=== PATIENT | male | born 1965 | race Caucasian/White ===

== ENCOUNTER 2025-01-25 10:05 | Emergency (ER) | payer OTHER, SELFPAY ==
[2025-01-25 10:08] VITALS: BP 131/94
--- NOTE | 2025-01-25 11:30 | ED.GENMED ---
History of Present Illness
General
Chief Complaint: Chest Problem
Source: patient
Time Seen by Provider: 01/25/25 10:59
History of Present Illness
History of Present Illness:
59-year-old male presents to the emergency room complaining of pain in his left lower abdomen. Pains been present for a day or so. No fever. Patient also complaining of a cough productive of yellow sputum. The patient has been experiencing a
cough chronically for the past couple years that is typically productive of clear sputum. He was concerned that the sputum color had changed. He actually took 500 mg of Zithromax which she had at home yesterday. The sputum color did not improve.
He feels mildly short of breath. He uses inhalers at home. Patient also has a history of diverticulitis diagnosed by CAT scan. He has had 1 hospitalization for this. He denies any nausea vomiting diarrhea or constipation.
Past History
Past History
ED Past Medical History: HTN, Psychiatric and Other
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
Social History
Tobacco: Former smoker
Alcohol: Occasional
Drug: None
Personal:
Living: with family
Employment: Employed
Family History
Family History: Other (non contributory)
Phy Exam
Physical Exam
Physical Exam:
General: Awake, Alert, Oriented X3. No acute distress.
Vitals: unremarkable
Head: Atraumatic
Eyes: Pupils equal, EOMI
Throat: Airway intact, no exudates
Neck: Trachea midline
Lungs: Coarse breath sounds throughout
Heart: Regular rate, no murmurs
Abd: Soft, left lower quadrant tenderness to palpation, no rebound, No pulsatile mass
Neuro: Nonfocal
Skin: Warm, dry, no rash
Extremities: pulses equal b/l, left BKA
Course
Orders/Labs/Results
Orders:
Orders
01/25/25 10:13
ECG [Electrocardiogram (*1)] Urgent
Reason for Study: Abdominal Pain
EKG- Treatment ONCE
01/25/25 11:30
Amoxicillin 875 mg/Clav 125 mg [Augmentin 875 mg/125 mg] 1 tablet PO NOW STA
Vital Signs
Initial and Last Documented VS:
Initial Vital Signs
Temp Pulse Resp BP Pulse Ox
97.9 F 78 20 131/94 95
01/25/25 10:08 01/25/25 10:08 01/25/25 10:08 01/25/25 10:08 01/25/25 10:08
Last Documented Vital Signs
Temp Pulse Resp BP Pulse Ox
97.9 F 73 18 123/83 100
01/25/25 10:08 01/25/25 12:15 01/25/25 12:15 01/25/25 12:15 01/25/25 12:15
MDM/Problems Addressed
Differential Diagnosis Includes:
Diverticulitis, bronchitis, pneumonia
MDM/Problems Addressed:
Patient presents with left lower quadrant abdominal pain with changes of sputum. Patient states the pain today is just like his diverticulitis pain. Because his exam is otherwise benign I feel comfortable clinically diagnosing him with
diverticulitis and starting antibiotics. Augmentin will cover any potential lung pathology that we likely has a change in sputum environmental exposures or viral illness. Patient stable for discharge home.
*Pulse Oximetry
Patient hypoxic: no
*EKG
Interpreted by ED Provider?: Yes
Heart Rate: 73
Rate: normal
Rhythm: sinus
[place]: normal axis
Interval: normal interval
QRS Pattern: normal QRS
Ischemia: no ischemia
*Field Support Rep Interpretation
Rate: normal
Interpretation: normal
Rhythm: sinus
*Critical Care Note
Total Time (30-74mins, 75-104mins- exclusive of procedures): Not Applicable
ED Attending Note
-
Portions of this chart may have been created with voice recognition software.� Occasional wrong word or��sound alike� substitutions may have occurred due to the inherent limitations of voice recognition software.
Discharge Plan
Departure
Patient Disposition: Home (Routine Discharge)
Date of Disposition: 01/25/25
Time of Disposition: 11:30
Patient with high blood pressure during this ER visit?: No
Condition: Good
Discharge Problem:
Diverticulitis, Abdominal pain
Instructions: Diverticulitis - Discharge instructions
Prescriptions:
New
amoxicillin-pot clavulanate 875-125 mg tablet
1 tab PO BID Qty: 14 0RF
No Action
metoprolol succinate 50 MG tablet extended release 24 hr
50 mg PO BID
lisinopril 20 MG tablet
20 mg PO BID
lorazepam 0.5 MG tablet
0.5 mg PO PRN PRN (Reason: anxiety)
multivitamin with folic acid [Tab-A-Gissel] 1 TABLET tablet
1 tab PO DAILY
lisinopril-hydrochlorothiazide 20-25 mg Tablet
1 tab PO DAILY
Probiotic 1 CAPSULE capsule
1 cap PO DAILY
ciprofloxacin HCl [Cipro] 500 mg tablet
500 mg PO BID Qty: 20 0RF
metronidazole 500 mg tablet
500 mg PO TID Qty: 30 0RF
Referrals:
Mac Ward MD [Family Provider, Internal Medicine]
Interventions
Interventions:
*Risk Screen - Suicide Last Done: 01/25/25 10:08
*General Assessment Last Done: 01/25/25 10:08
*Neglect/Abuse Screening Last Done: 01/25/25 11:20
*ED- Fall Risk Assessment Last Done: 01/25/25 11:20
*ED COVID-19 Vaccine History Last Done: 01/25/25 11:20
*Nursing Disposition Last Done: 01/25/25 12:16
ED- Cardiac Assessment Last Done: 01/25/25 11:20
ED- Pulmonary Assessment Last Done: 01/25/25 11:20
Discharge Date and Time
Discharge Date/Time: 01/25/25 12:17
Print Language: AUSTRIAN
[2025-01-25] MEDS: AUGMENTIN 875 MG/125 MG 1 TABLET PO (12:05)
[2025-01-25 12:15] VITALS: BP 123/83
== END 2025-01-25 12:17 | disposition home or self-care (01) ==
LOC: EMR 10:05
PROVIDERS: EMERGENCY PHYSICIAN Emergency Medicine; FAMILY PHYSICIAN Internal Medicine
DX: K57.32 Diverticulitis of large intestine without perforation or abscess without bleeding (principal); R10.32 Left lower quadrant pain; R05.8 Other specified cough; R06.02 Shortness of breath; I10 Essential (primary) hypertension; Z87.891 Personal history of nicotine dependence; Z89.512 Acquired absence of left leg below knee
CPT/HCPCS: 99283; 93005

== ENCOUNTER → 2025-07-20 08:37 | Outpatient (REF) | payer OTHER, SELFPAY | LOC: RAD 08:37 | PROVIDERS: ATTENDING PHYSICIAN Internal Medicine | DX: R10.30 Lower abdominal pain, unspecified (principal); R74.8 Abnormal levels of other serum enzymes | CPT/HCPCS: 76700 ==

== ENCOUNTER → 2025-07-26 08:26 | Outpatient (REF) | payer SELFPAY | LOC: HWRAD 08:26 | PROVIDERS: ATTENDING PHYSICIAN Nurse Practitioner | DX: E78.5 Hyperlipidemia, unspecified (principal) | CPT/HCPCS: 75571 ==